=== PATIENT | female | born 1990 | race Two or more races ===

== ENCOUNTER 2019-06-18 14:25 | Emergency (ER) | payer OTHER ==
[2019-06-18 16:13] LABS: ABS Eosinophils 0.1 10^3/ul (0-0.6); ABS Lymphocytes 2.2 10^3/ul (1.0-4.8); ABS Monocytes 0.7 10^3/ul (0-0.8); ABS Neutrophils 3.8 10^3/ul (1.5-7.7); Eosinophil % 0.9 %; Hematocrit 39 % (35-47); Hemoglobin 13.1 g/dL (12.0-16.0); Lymphocyte % 31.9 %; Mean Corpuscular HGB Conc 33 g/dL (31-36); Mean Corpuscular Hemoglobin 29 pg (27-31); Mean Corpuscular Volume 87 fL (80-97); Platelet Count 284 10^3/uL (150-450); Red Cell Distribution Width 14 % (10-15); White Blood Count 6.8 10^3/uL (3.5-10.8)
--- NOTE | 2019-06-18 18:55 | ED ---
- HPI Summary HPI Summary: Patient is a 28 y/o F presenting to the ED for a chief complaint of vaginal bleeding that began on 06/18/19. Patient also reports LLQ abdominal pain that radiates to the left lower back pain, lightheadedness, dizziness, and headache. Patient found out that she was with an at home test 2 days ago. Currently, she is still bleeding vaginally. She bled through one pad on . This is her 4th . She denies any complications without prior pregnancies. LNMP was around 05/14/20. She has irregular menstrual periods. She admits previously e-cigarette use and occasionally alcohol use, but denies drug use. Medicaitons reviewed. Allergies - History of Current Complaint Chief Complaint: EDOBProblems Stated Complaint: 5 WKS PREG BLEEDING/PAIN PER PT Time Seen by Provider: 06/18/19 18:49 Hx Obtained From: Patient Chief Complaint: Vaginal Bleeding Onset/Duration: Atraumatic, Still Present Timing: Constant Severity: Moderate Current Severity: Moderate Pain Intensity: 4 Location of Pain: Left Side Aggravating Factors: Nothing Alleviating Factors: Nothing Associated Signs and Symptoms: Positive: Back Pain - Left lower back, Vaginal Bleeding or Discharge - Allergies/Home Medications Allergies/Adverse Reactions: Allergies Allergy/AdvReac Type Severity Reaction Status Date / Time No Known Allergies Allergy Verified 06/18/19 14:37 PMH/Surg Hx/FS Hx/Imm Hx Previously Healthy: Yes Endocrine/Hematology History: Denies: Hx Diabetes Sensory History: Denies: Hx Legally Blind, Hx Deafness Opthamlomology History: Denies: Hx Legally Blind EENT History: Denies: Hx Deafness - Surgical History Surgical History: None Surgery Procedure, Year, and Place: None Infectious Disease History: No Infectious Disease History: Denies: Traveled Outside the [place] in Last 30 Days - Family History Known Family History: Negative: Diabetes, Renal Disease - Social History Occupation: Unemployed Lives: With Family Alcohol Use: None Hx Substance Use: No Substance Use Type: Reports: None Hx Tobacco Use: Yes Smoking Status (MU): Current Every Day Smoker Type: Cigarettes Review of Systems Positive: Abdominal Pain - LLQ that radiates to the back Positive: other - Positive vaginal bleeding Neurological: Other - Positive lightheadedness and dizziness Positive: Headache All Other Systems Reviewed And Are Negative: Yes Physical Exam - Summary Physical Exam Summary: Constitutional: Well-developed, Well-nourished, Alert. (-) Distressed Skin: Warm, Dry HENT: Normocephalic; Atraumatic Eyes: Conjunctiva normal Neck: Musculoskeletal ROM normal neck. (-) JVD, (-) Stridor, (-) Tracheal deviation Cardio: Rhythm regular, rate normal, Heart sounds normal; Intact distal pulses; Radial pulses are 2+ and symmetric. (-) Murmur Pulmonary/Chest wall: Effort normal. (-) Respiratory distress, (-) Wheezes, (-) Rales Abd: Soft, (-) tenderness, (-) Distension, (-) Guarding, (-) Rebound Musculoskeletal: (-) Edema Lymph: (-) Cervical adenopathy Neuro: Alert, Oriented x3 Psych: Mood and affect Normal - Physical Exam Triage Information Reviewed: Yes Vital Signs Reviewed: Yes Procedures - Sedation Patient Received Moderate/Deep Sedation with Procedure: No Diagnostics - Vital Signs Vital Signs Temp Pulse Resp BP Pulse Ox 06/18/19 16:38 98.2 F 52 18 150/96 100 06/18/19 14:35 97.8 F 68 19 155/92 99 - Laboratory Lab Results: Lab Results 06/18/19 06/18/19 06/18/19 Range/Units 15:50 15:50 15:50 WBC 6.8 (3.5-10.8) 10^3/uL RBC 4.50 (3.70-4.87) 10^6 /uL Hgb 13.1 (12.0-16.0) g/dL Hct 39 (35-47) % MCV 87 (80-97) fL MCH 29 (27-31) pg MCHC 33 (31-36) g/dL RDW 14 (10-15) % Plt Count 284 (150-450) 10^3/uL MPV 8.0 (7.4-10.4) fL Neut % (Auto) 56.0 % Lymph % (Auto) 31.9 % [place] % (Auto) 10.7 % Eos % (Auto) 0.9 % Baso % (Auto) 0.5 % Absolute Neuts (auto) 3.8 (1.5-7.7) 10^3/ul Absolute Lymphs (auto) 2.2 (1.0-4.8) 10^3/ul Absolute Monos (auto) 0.7 (0-0.8) 10^3/ul Absolute Eos (auto) 0.1 (0-0.6) 10^3/ul Absolute Basos (auto) 0.0 (0-0.2) 10^3/ul Absolute Nucleated RBC 0.0 10^3/ul Nucleated RBC % 0.0 Beta HCG, Quant 1.73 mIU/mL Blood Type O Positive Result Diagrams: 06/18/19 15:50 Lab Statement: Any lab studies that have been ordered have been reviewed, and results considered in the medical decision making process. Course/Dx - Course Course Of Treatment: Patient is here with light vaginal bleeding. Patient had a positive test a couple of days ago which she took when her period was one daily. Patient had a prexy test today which showed no evidence of . Patient is hemodynamically stable. Patient is O+ blood. Patient possibly had a miscarriage very early on in her . Given the negative prexy hormone result, an ultrasound was not needed. Patient was given Infections and [employer] follow-up - Diagnoses Provider Diagnoses: Lower abdominal pain, Vaginal bleeding Discharge ED - Sign-Out/Discharge Documenting (check all that apply): Patient Departure - Discharge - Discharge Plan Condition: Stable Disposition: HOME Patient Education Materials: Abdominal Pain (ED) Referrals: [facility] [Outside] Shikha Black MD [Medical Doctor] - Additional Instructions: PLEASE RETURN TO EMERGENCY DEPARTMENT FOR SEVERE ABDOMINAL PAIN, YOU BLEED THROUGH MORE THAN 1 PAD PER HOUR, YOU PASS OUT, OR ANY NEW OR WORSENING SYMPTOMS. Please follow up with [facility] and Dr. Black. Please make all follow-ups in 1-3 days unless I advise you otherwise. Call Dr. Black tomorrow to make an appointment on Tuesday. Tell Dr. Black you need to be seen on Tuesday to see if your labs are doubling. - Billing Disposition and Condition Condition: STABLE Disposition: Home - Attestation Statements Document Initiated by Scribe: Yes Documenting Scribe: Olivia Forman Provider For Whom Scribe is Documenting (Include Credential): Greg Phillip MD Scribe Attestation: I, Olivia Forman, scribed for Greg Phillip MD on 06/18/19 at 1942. Scribe Documentation Reviewed: Yes Provider Attestation: The documentation as recorded by the scribe, Olivia Forman accurately reflects the service I personally performed and the decisions made by me, Greg Phillip MD Status of Scribe Document: Viewed
[2019-06-18 19:45] VITALS: BP 142/74
== END 2019-06-18 19:44 | disposition home or self-care (01) ==
LOC: ED 14:25
DX: N93.9 Abnormal uterine and vaginal bleeding, unspecified (principal); R10.30 Lower abdominal pain, unspecified; F17.210 Nicotine dependence, cigarettes, uncomplicated
CPT/HCPCS: 36415; 84702; 85025; 86900; 86901; 99282

== ENCOUNTER 2020-05-13 10:23 | Inpatient (IN) ==
[2020-05-13] MEDS ORDERED: Buffered Lidocaine 1% SYRIN 1 ml INTRADERM ONE (11:23)
[2020-05-13] MEDS ORDERED: Lactated Ringers 1000 ml BAG 1,000 ML IV ONE (11:23)
[2020-05-13] MEDS ORDERED: Lactated Ringers 1000 ml BAG 1,000 ML IV SCH ×2 (12:00→19:00)
[2020-05-13] MEDS ORDERED: Penicillin G Potassium IV 5,000,000 UNITS in NS 0.9% 100 ml BAG 100 ML IVPB ONE (12:00)
[2020-05-13 12:19] LABS: ABS Basophils 0.1 10^3/ul (0-0.2); ABS Lymphocytes 2.1 10^3/ul (1.0-4.8); ABS Monocytes 0.8 10^3/ul (0-0.8); ABS Neutrophils 4.5 10^3/ul (1.5-7.7); Eosinophil % 0.4 %; Hematocrit 32 % (35-47); Hemoglobin 10.5 g/dL (12.0-16.0); Lymphocyte % 27.7 %; Mean Corpuscular HGB Conc 32 g/dL (31-36); Mean Corpuscular Hemoglobin 25 pg (27-31); Mean Corpuscular Volume 78 fL (80-97); Mean Platelet Volume 8.5 fL (7.4-10.4); Platelet Count 337 10^3/uL (150-450); Red Blood Count 4.13 10^6 /uL (3.70-4.87); Red Cell Distribution Width 15 % (10-15); White Blood Count 7.4 10^3/uL (3.5-10.8)
[2020-05-13 12:25] LABS: Urine Benzodiazepine Screen None Detected (None Detect); Urine Cannabinoids Screen Presumptive Positive (None Detect); Urine Opiates Screen None Detected (None Detect)
[2020-05-13] MEDS ORDERED: Penicillin G Potassium IV 3,000,000 UNITS in NS 0.9% 100 ml BAG 100 ML IVPB SCH (17:00)
[2020-05-13] MEDS ORDERED: Oxytocin in LR 20 UNITS/1,000 ML BAG IVPB ONE (17:49)
[2020-05-13] MEDS ORDERED: Dibucaine 1% OINT 28.35 GM TUBE PR PRN (18:44)
[2020-05-13] MEDS ORDERED: Glycerin ADULT 2.4 gm SUPP PR PRN (18:44)
[2020-05-13] MEDS ORDERED: Witch Hazel PAD JAR TOPICAL PRN (18:44)
[2020-05-13] MEDS ORDERED: Oxytocin in LR 20 UNITS/1,000 ML BAG IVPB SCH (19:00)
[2020-05-14 06:02] LABS: ABS Basophils 0.1 10^3/ul (0-0.2); ABS Eosinophils 0.1 10^3/ul (0-0.6); ABS Lymphocytes 2.8 10^3/ul (1.0-4.8); ABS Monocytes 0.9 10^3/ul (0-0.8); ABS Neutrophils 7.1 10^3/ul (1.5-7.7); Eosinophil % 0.8 %; Hematocrit 32 % (35-47); Hemoglobin 10.5 g/dL (12.0-16.0); Lymphocyte % 25.3 %; Mean Corpuscular HGB Conc 33 g/dL (31-36); Mean Corpuscular Hemoglobin 26 pg (27-31); Mean Corpuscular Volume 78 fL (80-97); Mean Platelet Volume 7.9 fL (7.4-10.4); Platelet Count 335 10^3/uL (150-450); Red Blood Count 4.08 10^6 /uL (3.70-4.87); Red Cell Distribution Width 15 % (10-15); White Blood Count 10.9 10^3/uL (3.5-10.8)
[2020-05-14] MEDS ORDERED: Measles, Mumps,Rubella VACC 0.5 ML/VIAL SUBCUT ONE (09:00)
[2020-05-15 08:05] VITALS: BP 111/58
== END 2020-05-15 18:40 | disposition home or self-care (01) | DRG 560 ==
LOC: MCHOBOUT 10:23 → MCHOB 11:08
PROVIDERS: ADMIT Midwife; ATTEND Midwife

== ENCOUNTER 2021-05-20 11:52 | Inpatient (IN) ==
[2021-05-20] MEDS ORDERED: Penicillin G Potassium IV 5,000,000 UNITS in NS 0.9% 100 ml BAG 100 ML IVPB ONE (12:43)
[2021-05-20] MEDS ORDERED: Buffered Lidocaine 1% SYRIN 1 ml INTRADERM ONE (12:43)
[2021-05-20] MEDS ORDERED: Lactated Ringers 1000 ml BAG 1,000 ML IV ONE (12:47)
[2021-05-20] MEDS ORDERED: Lactated Ringers 1000 ml BAG 1,000 ML IV SCH (13:00)
[2021-05-20 14:21] LABS: ABS Lymphocytes 1.3 10^3/ul (1.0-4.8); ABS Monocytes 0.4 10^3/ul (0-0.8); ABS Neutrophils 1.8 10^3/ul (1.5-7.7); Eosinophil % 0.4 %; Hematocrit 27 % (35-47); Hemoglobin 8.8 g/dL (12.0-16.0); Lymphocyte % 37.2 %; Mean Corpuscular HGB Conc 32 g/dL (31-36); Mean Corpuscular Hemoglobin 24 pg (27-31); Mean Corpuscular Volume 74 fL (80-97); Mean Platelet Volume 7.9 fL (7.4-10.4); Nucleated Red Blood Cells % 0.1; Platelet Count 284 10^3/uL (150-450); Red Blood Count 3.71 10^6 /uL (3.70-4.87); Red Cell Distribution Width 17 % (10-15); White Blood Count 3.5 10^3/uL (3.5-10.8)
[2021-05-20 14:27] LABS: Urine Benzodiazepine Screen None Detected (None Detect); Urine Cannabinoids Screen Presumptive Positive (None Detect); Urine Opiates Screen None Detected (None Detect)
[2021-05-20 15:50] LABS: Anisocytosis 2+; Hypochromasia 1+; Macrocytosis 1+; Microcytosis 1+
[2021-05-20] MEDS: Penicillin G Potassium IV 3,000,000 UNITS in NS 0.9% 100 ml BAG 100 ML IVPB SCH ×2 (18:05→21:55)
[2021-05-20] MEDS ORDERED: Oxytocin in LR 20 UNITS/1,000 ML BAG IVPB ONE (22:32)
[2021-05-21] MEDS ORDERED: Witch Hazel PAD JAR TOPICAL PRN (00:11)
[2021-05-21] MEDS ORDERED: Glycerin ADULT 2.4 gm SUPP PR PRN (00:11)
[2021-05-21] MEDS ORDERED: Measles, Mumps,Rubella VACC 0.5 ML/VIAL SUBCUT ONE (00:11)
[2021-05-21] MEDS ORDERED: Dibucaine 1% OINT 28.35 GM TUBE PR PRN (00:11)
[2021-05-21] MEDS ORDERED: Lactated Ringers 1000 ml BAG 1,000 ML IV SCH (01:00)
[2021-05-21] MEDS ORDERED: Ammonia Inhalant 1 EA AMP ONE (01:07)
[2021-05-21 06:37] LABS: ABS Lymphocytes 1.6 10^3/ul (1.0-4.8); ABS Monocytes 0.7 10^3/ul (0-0.8); ABS Neutrophils 3.9 10^3/ul (1.5-7.7); Eosinophil % 0.4 %; Hematocrit 26 % (35-47); Hemoglobin 8.6 g/dL (12.0-16.0); Lymphocyte % 25.9 %; Mean Corpuscular HGB Conc 33 g/dL (31-36); Mean Corpuscular Hemoglobin 24 pg (27-31); Mean Corpuscular Volume 73 fL (80-97); Mean Platelet Volume 7.8 fL (7.4-10.4); Platelet Count 257 10^3/uL (150-450); Red Blood Count 3.62 10^6 /uL (3.70-4.87); Red Cell Distribution Width 17 % (10-15); White Blood Count 6.3 10^3/uL (3.5-10.8)
[2021-05-22] MEDS: Penicillin G Potassium IV 3,000,000 UNITS in NS 0.9% 100 ml BAG 100 ML IVPB SCH (07:28)
[2021-05-23 08:03] VITALS: BP 114/61
== END 2021-05-23 14:51 | disposition home or self-care (01) | DRG 560 ==
LOC: MCHOBOUT 11:52 → MCHOB 12:47
PROVIDERS: ADMIT Midwife; ATTEND Midwife

== ENCOUNTER 2022-04-11 12:20 | Inpatient (IN) ==
[2022-04-11] MEDS ORDERED: Promethazine INJ(RESTRICTED) 25 MG/ML 1 ml VIAL IV PRN (12:55)
[2022-04-11] MEDS ORDERED: Lactated Ringers 1000 ml BAG 1,000 ML IV ONE ×2 (12:55→13:00)
[2022-04-11] MEDS ORDERED: Buffered Lidocaine 1% SYRIN 1 ml INTRADERM ONE (12:55)
[2022-04-11] MEDS ORDERED: Nalbuphine 10 MG/ML 1 ML VIAL IV PRN (12:55)
[2022-04-11] MEDS ORDERED: Lactated Ringers 1000 ml BAG 1,000 ML IV SCH (13:00)
[2022-04-11 13:19] LABS: Hematocrit 29 % (35-47); Hemoglobin 8.9 g/dL (12.0-16.0); Mean Corpuscular HGB Conc 31 g/dL (31-36); Mean Corpuscular Hemoglobin 22 pg (27-31); Mean Corpuscular Volume 71 fL (80-97); Mean Platelet Volume 8.1 fL (7.4-10.4); Platelet Count 313 10^3/uL (150-450); Red Blood Count 4.05 10^6 /uL (3.70-4.87); Red Cell Distribution Width 17 % (10-15); White Blood Count 7.5 10^3/uL (3.5-10.8)
[2022-04-11] MEDS ORDERED: Witch Hazel PAD JAR TOPICAL PRN (13:31)
[2022-04-11] MEDS ORDERED: Dibucaine 1% OINT 28.35 GM TUBE PR PRN (13:31)
[2022-04-11] MEDS ORDERED: Glycerin ADULT 2.4 gm SUPP PR PRN (13:31)
[2022-04-11 13:36] LABS: Anisocytosis 1+; Microcytosis 2+
[2022-04-11 13:37] LABS: ABS Lymphocytes 1.9 10^3/ul (1.0-4.8); ABS Monocytes 0.6 10^3/ul (0-0.8); ABS Neutrophils 4.8 10^3/ul (1.5-7.7); Eosinophil % 0.3 %
[2022-04-11 14:16] LABS: HIV 4th Generation Nonreactive (Nonreactive)
[2022-04-11 15:07] LABS: Hepatitis B Surface Antigen Nonreactive (Nonreactive)
[2022-04-11 15:24] LABS: Hepatitis C Antibody Negative (Negative)
[2022-04-11 16:53] LABS: Urine Benzodiazepine Screen None Detected (None Detect); Urine Cannabinoids Screen Presumptive Positive (None Detect); Urine Opiates Screen None Detected (None Detect)
[2022-04-12 07:50] LABS: ABS Basophils 0.1 10^3/ul (0-0.2); ABS Eosinophils 0.1 10^3/ul (0-0.6); ABS Lymphocytes 3.2 10^3/ul (1.0-4.8); ABS Monocytes 1.1 10^3/ul (0-0.8); Eosinophil % 0.5 %; Hematocrit 27 % (35-47); Hemoglobin 8.6 g/dL (12.0-16.0); Lymphocyte % 27.9 %; Mean Corpuscular HGB Conc 32 g/dL (31-36); Mean Corpuscular Hemoglobin 22 pg (27-31); Mean Corpuscular Volume 70 fL (80-97); Mean Platelet Volume 8.3 fL (7.4-10.4); Platelet Count 295 10^3/uL (150-450); Red Blood Count 3.87 10^6 /uL (3.70-4.87); Red Cell Distribution Width 17 % (10-15); White Blood Count 11.3 10^3/uL (3.5-10.8)
[2022-04-13 11:35] VITALS: BP 112/56
== END 2022-04-13 14:20 | disposition home or self-care (01) | DRG 560 ==
LOC: MCHOBOUT 12:20 → MCHOB 12:49
PROVIDERS: ADMIT Obstetrics & Gynecology; ATTEND Obstetrics & Gynecology